=== PATIENT | male | born 1985 | race Caucasian/White ===

== ENCOUNTER 2018-07-18 11:32 | Emergency (ER) | payer OTHER, SELFPAY ==
[2018-07-18 11:51] VITALS: BP 156/105; PULSE 93; RESP 18; TEMP 37.4; O2SAT 95
--- NOTE | 2018-07-18 12:51 | DI.CT.S_ITS ---
PROCEDURE: CT UE LT WO CON INDICATIONS: trauma TECHNIQUE: Noncontrast 3 mm axial sections acquired of the left forearm, with coronal and sagittal reformats. COMPARISON: [facility] Outside Film, RG, FOREARM 2VW (LT), 07/17/2018, 21:41. FINDINGS: Image quality: Excellent. Bones: Examination of the left forearm shows an acute comminuted fracture involving the radial head with fracture line extending into its articulation with capitellum. Slightly laterally displaced radial head fragment is also seen. Acute comminuted fracture is also seen involving proximal ulnar shaft with dorsal angulation and displacement at fracture site.. Fracture line is seen extending to involve base of coronoid process with slight anterior displacement at fracture site. There is also an acute comminuted fracture involving distal radial shaft with fracture line extending to the radiocarpal joint space and anteriorly displaced fractured fragments. No definite distal humeral shaft fracture is seen. No mid-to distal ulnar shaft fracture. No gross carpal bone fracture is identified. Soft tissues: Significant soft tissue swelling around elbow joint fracture site is seen. Moderate elbow joint effusion is seen. Soft tissue swelling around distal radial shaft fracture site is also noted. IMPRESSION: 1. Acute comminuted and displaced intra-articular fracture involving proximal radial head. 2. Acute comminuted and displaced intra-articular fracture involving distal radius. 3. Acute comminuted and angulated fracture involving proximal ulnar shaft with fracture line likely extending to involve base of coronoid process. Dictated by: Donis Trejo M.D. on 07/18/2018 at 13:30 Approved by: Donis Trejo M.D. on 07/18/2018 at 13:44
--- NOTE | 2018-07-18 13:21 | ED.UPPEXIN ---
HPI - Extremity Injury (Upper) General Chief Complaint: Trauma Stated Complaint: FELL OFF LADDER, FINGERS TINGLING Time Seen by Provider: 07/18/18 12:06 Source: patient and family Mode of arrival: ambulatory Limitations: no limitations History of Present Illness HPI narrative: This is a 33-year-old male comes to the emergency department with complaint of fall yesterday. He fell off a ladder he states he is about 6 ft up, he thinks he just stepped off on fell onto the floor. He denies any head injury, he denies any neck or back pain. He states he was seen at [facility] and was diagnosed with fractures of the proximal and distal forearm. Patient had increasing pain overnight. He contacted the orthopedic office here in town images were reviewed and he was asked to come to the ER for a CT. Patient was having some tingling in the fingers. He states that the pain started to improve after the splint was unwrapped he noticed that he had more swelling than he did yesterday in the hand. Related Data Previous Rx's Medication Instructions Recorded hydroxyzine pamoate [Vistaril] 25 mg PO QID PRN #20 cap 07/18/18 oxycodone 5 mg PO Q4-6H PRN #25 tab 07/18/18 Allergies Allergy/AdvReac Type Severity Reaction Status Date / Time codeine [CODEINE] Allergy Unknown Verified 07/18/18 13:39 Review of Systems ENT Ears, Nose, Mouth, and Throat: Denies neck pain Musculoskeletal Reports system reviewed and no additional complaints, except as docu, Denies back pain, Denies neck pain and Reports tingling (left hand, pins and needles) Neurologic Reports tingling (left hand, pins and needles) [facility] Social History Smoking Status: Current every day smoker Exam Narrative Exam Narrative: GEN: Patient appears in mild distress. HEAD: No evidence of trauma, no raccoon/Doyle sign. NECK: Nontender, painless range of motion, trachea midline Negative Nexus criteria, there is no mid line tenderness, distracting injury, altered mental status, neuro deficit, recent EtOH. EYES: PERRLA, EOMI ENT: External inspection normal, trachea is midline, TM's are normal no hemotypanum, Nares are clear, no septal hematoma, no dental or oral injury, airway is normal and with normal occlusion, No bony tenderness RESP: Chest is nontender and has symmetric movement, no ecchymosis, breath sounds are normal no crackles, wheezes or rales CVS: Heart sounds are normal, no murmur noted, No JVD. ABG/GI: Nontender, soft, normal bowel sounds, no distention, no organomegaly, pelvic rock is [negative/positive] NEURO: Oriented AOx3, neuro is grossly intact, sensation and motor is normal all 4 extremities moving, cranial nerves II through XII are intact, GCS is 15 PSYCH: Normal mood and affect SKIN: Intact, warm and dry, no crepitus and without decubitus EXT: Patient has his left lower extremity splint with Yuri bandage removed, patient has tenderness of the arm itself distally and proximally over the radius and ulna he has a 2+ radial pulse on the left, he has cap refill less than 2 sec in all 5 fingers with full movement in all 5 fingers. Patient has sensation to touch, hips are nontender, no pedal edema, normal color and temperature, normal range of motion of extremities with normal tendon exam, 2+ pulses in all four extremities Initial Vital Signs Initial Vital Signs: Vital Signs Temperature 99.3 F 07/18/18 11:51 Pulse Rate 93 H 07/18/18 11:51 Respiratory Rate 18 07/18/18 11:51 Blood Pressure 156/105 H 07/18/18 11:51 Pulse Oximetry 95 07/18/18 11:51 Course Orders Ordered: ED Orders 07/18/18 12:51 CT UE LT wo con Stat Discontinued Medications Oxycodone/Acetaminophen (Percocet 5/325) 2 tab PO NOW ONE Stop: 07/18/18 13:24 Last Admin: 07/18/18 13:54 Dose: Oxycodone/Acetaminophen (Percocet 5/325) 1 tab PO NOW ONE Stop: 07/18/18 13:45 Last Admin: 07/18/18 14:19 Dose: Oxycodone/Acetaminophen (Percocet 5/325) 2 tab PO NOW ONE Stop: 07/18/18 14:19 Last Admin: 07/18/18 14:19 Dose: 2 tab Oxycodone/Acetaminophen (Percocet 5/325) 1 tab PO NOW ONE Stop: 07/18/18 14:21 Last Admin: 07/18/18 14:21 Dose: Vital Signs - 8 hr 07/18/18 11:51 07/18/18 14:48 Temperature 99.3 F Pulse Rate 93 H 88 Respiratory Rate 18 20 Blood Pressure 156/105 H 140/99 H Pulse Oximetry 95 100 MDM - Extremity Injury (Upper) Imaging Data CT UE: Radiologist's impression: [address] [address] [address] Scan Report Signed Patient: Sherwin Erickson PMR#: [id number] : 1985Acct:[id number] Age/Sex: 33 / MDate of Service: 07/18/18 Loc: ED Accession Number: [id number] Procedure: CT UE LT wo con Ordering Provider: Jade Don D.O. PROCEDURE: CT UE LT WO CON INDICATIONS: trauma TECHNIQUE: Noncontrast 3 mm axial sections acquired of the left forearm, with coronal and sagittal reformats. COMPARISON: [facility] Outside Film, RG, FOREARM 2VW (LT), 07/17/2018, 21:41. FINDINGS: Image quality: Excellent. Bones: Examination of the left forearm shows an acute comminuted fracture involving the radial head with fracture line extending into its articulation with capitellum. Slightly laterally displaced radial head fragment is also seen. Acute comminuted fracture is also seen involving proximal ulnar shaft with dorsal angulation and displacement at fracture site.. Fracture line is seen extending to involve base of coronoid process with slight anterior displacement at fracture site. There is also an acute comminuted fracture involving distal radial shaft with fracture line extending to the radiocarpal joint space and anteriorly displaced fractured fragments. No definite distal humeral shaft fracture is seen. No mid-to distal ulnar shaft fracture. No gross carpal bone fracture is identified. Soft tissues: Significant soft tissue swelling around elbow joint fracture site is seen. Moderate elbow joint effusion is seen. Soft tissue swelling around distal radial shaft fracture site is also noted. IMPRESSION: 1. Acute comminuted and displaced intra-articular fracture involving proximal radial head. 2. Acute comminuted and displaced intra-articular fracture involving distal radius. 3. Acute comminuted and angulated fracture involving proximal ulnar shaft with fracture line likely extending to involve base of coronoid process. Dictated by: Donis Trejo M.D. on 07/18/2018 at 13:30 Approved by: Donis Trejo M.D. on 07/18/2018 at 13:44 [facility] Narrative Medical decision making narrative: Spoke with Dr. salinas, Dr. Alas had reviewed his x-ray films. Dr. salinas reviewed his CT films here in the emergency department. Plan to keep patient and have surgery this following week. Patient can return home. They do not feel he needs to go to [facility] for his fractures and that they can be surgically fixated at [place]. Patient was given a prescription for pain medicine, he is also complaining of a little bit of burning sensation Vistaril as well. Pain did improve after loosening of his splint was rewrapped here in the department. We did discussed red flag symptoms to watch out for and reasons to return emergently. Discharge Plan Departure Patient Disposition: Home Clinical Impression: Forearm fractures, both bones, closed Discharge Date/Time: 07/18/18 14:49 Interventions: ED Discharge Assessment Last Done: 07/18/18 14:48 Instructions: Forearm Fracture Activity Restrictions/Additional Instructions: Follow-up with Dr. Alas next week for surgical repair of her fractures. Call tomorrow afternoon if you have not heard from the office for an appointment time. Take pain medication as prescribed, you can week 1-2 tablets every 6 hr as needed for pain. You may take up to a 1000 mg every 8 hr as needed for pain. You may also take Vistaril 1 tablet every 6-8 hours as needed for itching or burning sensation. Return to the emergency department for new weakness, loss of sensation, inability to move or feel your fingers, rapidly worsening pain, color changes such as pallor or cyanosis. Splint Care: Keep splint clean and dry. Elevated affected body part to decrease swelling. OK to use ice pack on the affected body part. Use for 15-20 minutes each time, for 5-6x per day. If you develop worsening pain, numbness, tingling, discoloration of the affected body part, loosen the splint by loosening the YURI wrap, and either see your doctor for an urgent re-assessment, or return to the Emergency Department. Return to the Emergency Department for any new or worsening symptoms. Prescriptions: New oxycodone 5 mg tablet 5 mg PO Q4-6H PRN (Reason: pain) Qty: 25 RF: 0 hydroxyzine pamoate [Vistaril] 25 mg capsule 25 mg PO QID PRN (Reason: itching) Qty: 20 RF: 0 Referrals: Marquez Alas MD [Physician] -
--- NOTE | 2018-07-18 14:00 | ED_ITS ---
HPI - Extremity Injury (Upper) General Chief Complaint: Trauma Stated Complaint: FELL OFF LADDER, FINGERS TINGLING Time Seen by Provider: 07/18/18 12:06 Source: patient and family Mode of arrival: ambulatory Limitations: no limitations History of Present Illness HPI narrative: This is a 33-year-old male comes to the emergency department with complaint of fall yesterday. He fell off a ladder he states he is about 6 ft up, he thinks he just stepped off on fell onto the floor. He denies any head injury, he denies any neck or back pain. He states he was seen at [facility] and was diagnosed with fractures of the proximal and distal forearm. Patient had increasing pain overnight. He contacted the orthopedic office here in town images were reviewed and he was asked to come to the ER for a CT. Patient was having some tingling in the fingers. He states that the pain started to improve after the splint was unwrapped he noticed that he had more swelling than he did yesterday in the hand. Related Data Previous Rx's Medication Instructions Recorded hydroxyzine pamoate [Vistaril] 25 mg PO QID PRN #20 cap 07/18/18 oxycodone 5 mg PO Q4-6H PRN #25 tab 07/18/18 Allergies Allergy/AdvReac Type Severity Reaction Status Date / Time codeine [CODEINE] Allergy Unknown Verified 07/18/18 13:39 Review of Systems ENT Ears, Nose, Mouth, and Throat: Denies neck pain Musculoskeletal Reports system reviewed and no additional complaints, except as docu, Denies back pain, Denies neck pain and Reports tingling (left hand, pins and needles) Neurologic Reports tingling (left hand, pins and needles) [facility] Social History Smoking Status: Current every day smoker Exam Narrative Exam Narrative: GEN: Patient appears in mild distress. HEAD: No evidence of trauma, no raccoon/Doyle sign. NECK: Nontender, painless range of motion, trachea midline Negative Nexus criteria, there is no mid line tenderness, distracting injury, altered mental status, neuro deficit, recent EtOH. EYES: PERRLA, EOMI ENT: External inspection normal, trachea is midline, TM's are normal no hemotypanum, Nares are clear, no septal hematoma, no dental or oral injury, airway is normal and with normal occlusion, No bony tenderness RESP: Chest is nontender and has symmetric movement, no ecchymosis, breath sounds are normal no crackles, wheezes or rales CVS: Heart sounds are normal, no murmur noted, No JVD. ABG/GI: Nontender, soft, normal bowel sounds, no distention, no organomegaly, pelvic rock is [negative/positive] NEURO: Oriented AOx3, neuro is grossly intact, sensation and motor is normal all 4 extremities moving, cranial nerves II through XII are intact, GCS is 15 PSYCH: Normal mood and affect SKIN: Intact, warm and dry, no crepitus and without decubitus EXT: Patient has his left lower extremity splint with Yuri bandage removed, patient has tenderness of the arm itself distally and proximally over the radius and ulna he has a 2+ radial pulse on the left, he has cap refill less than 2 sec in all 5 fingers with full movement in all 5 fingers. Patient has sensation to touch, hips are nontender, no pedal edema, normal color and temperature, normal range of motion of extremities with normal tendon exam, 2+ pulses in all four extremities Initial Vital Signs Initial Vital Signs: Vital Signs Temperature 99.3 F 07/18/18 11:51 Pulse Rate 93 H 07/18/18 11:51 Respiratory Rate 18 07/18/18 11:51 Blood Pressure 156/105 H 07/18/18 11:51 Pulse Oximetry 95 07/18/18 11:51 Course Orders Ordered: ED Orders 07/18/18 12:51 CT UE LT wo con Stat Discontinued Medications Oxycodone/Acetaminophen (Percocet 5/325) 2 tab PO NOW ONE Stop: 07/18/18 13:24 Last Admin: 07/18/18 13:54 Dose: Oxycodone/Acetaminophen (Percocet 5/325) 1 tab PO NOW ONE Stop: 07/18/18 13:45 Last Admin: 07/18/18 14:19 Dose: Oxycodone/Acetaminophen (Percocet 5/325) 2 tab PO NOW ONE Stop: 07/18/18 14:19 Last Admin: 07/18/18 14:19 Dose: 2 tab Oxycodone/Acetaminophen (Percocet 5/325) 1 tab PO NOW ONE Stop: 07/18/18 14:21 Last Admin: 07/18/18 14:21 Dose: Vital Signs - 8 hr 07/18/18 11:51 07/18/18 14:48 Temperature 99.3 F Pulse Rate 93 H 88 Respiratory Rate 18 20 Blood Pressure 156/105 H 140/99 H Pulse Oximetry 95 100 MDM - Extremity Injury (Upper) Imaging Data CT UE: Radiologist's impression: [address] [address] [address] Scan Report Signed Patient: hSerwin Erickson PMR#: [id number] : 1985Acct:[id number] Age/Sex: 33 / MDate of Service: 07/18/18 Loc: ED Accession Number: [id number] Procedure: CT UE LT wo con Ordering Provider: Jade Don D.O. PROCEDURE: CT UE LT WO CON INDICATIONS: trauma TECHNIQUE: Noncontrast 3 mm axial sections acquired of the left forearm, with coronal and sagittal reformats. COMPARISON: [facility] Outside Film, RG, FOREARM 2VW (LT), 07/17/2018, 21:41. FINDINGS: Image quality: Excellent. Bones: Examination of the left forearm shows an acute comminuted fracture involving the radial head with fracture line extending into its articulation with capitellum. Slightly laterally displaced radial head fragment is also seen. Acute comminuted fracture is also seen involving proximal ulnar shaft with dorsal angulation and displacement at fracture site.. Fracture line is seen extending to involve base of coronoid process with slight anterior displacement at fracture site. There is also an acute comminuted fracture involving distal radial shaft with fracture line extending to the radiocarpal joint space and anteriorly displaced fractured fragments. No definite distal humeral shaft fracture is seen. No mid-to distal ulnar shaft fracture. No gross carpal bone fracture is identified. Soft tissues: Significant soft tissue swelling around elbow joint fracture site is seen. Moderate elbow joint effusion is seen. Soft tissue swelling around distal radial shaft fracture site is also noted. IMPRESSION: 1. Acute comminuted and displaced intra-articular fracture involving proximal radial head. 2. Acute comminuted and displaced intra-articular fracture involving distal radius. 3. Acute comminuted and angulated fracture involving proximal ulnar shaft with fracture line likely extending to involve base of coronoid process. Dictated by: Donis Trejo M.D. on 07/18/2018 at 13:30 Approved by: Donis Trejo M.D. on 07/18/2018 at 13:44 [facility] Narrative Medical decision making narrative: Spoke with Dr. salinas, Dr. Alas had reviewed his x-ray films. Dr. salinas reviewed his CT films here in the emergency department. Plan to keep patient and have surgery this following week. Patient can return home. They do not feel he needs to go to [facility] for his fractures and that they can be surgically fixated at [place]. Patient was given a prescription for pain medicine, he is also complaining of a little bit of burning sensation Vistaril as well. Pain did improve after loosening of his splint was rewrapped here in the department. We did discussed red flag symptoms to watch out for and reasons to return emergently. Discharge Plan Departure Patient Disposition: Home Clinical Impression: Forearm fractures, both bones, closed Discharge Date/Time: 07/18/18 14:49 Interventions: ED Discharge Assessment Last Done: 07/18/18 14:48 Instructions: Forearm Fracture Activity Restrictions/Additional Instructions: Follow-up with Dr. Alas next week for surgical repair of her fractures. Call tomorrow afternoon if you have not heard from the office for an appointment time. Take pain medication as prescribed, you can week 1-2 tablets every 6 hr as needed for pain. You may take up to a 1000 mg every 8 hr as needed for pain. You may also take Vistaril 1 tablet every 6-8 hours as needed for itching or burning sensation. Return to the emergency department for new weakness, loss of sensation, inability to move or feel your fingers, rapidly worsening pain, color changes such as pallor or cyanosis. Splint Care: Keep splint clean and dry. Elevated affected body part to decrease swelling. OK to use ice pack on the affected body part. Use for 15-20 minutes each time, for 5-6x per day. If you develop worsening pain, numbness, tingling, discoloration of the affected body part, loosen the splint by loosening the YURI wrap, and either see your doctor for an urgent re-assessment, or return to the Emergency Department. Return to the Emergency Department for any new or worsening symptoms. Prescriptions: New oxycodone 5 mg tablet 5 mg PO Q4-6H PRN (Reason: pain) Qty: 25 RF: 0 hydroxyzine pamoate [Vistaril] 25 mg capsule 25 mg PO QID PRN (Reason: itching) Qty: 20 RF: 0 Referrals: Marquez Alas MD [Physician] -
[2018-07-18] MEDS: OXYCODONE/ACETAMINOPHEN 5/325 TABLET 2 TAB PO (14:19)
[2018-07-18 14:48] VITALS: BP 140/99; PULSE 88; RESP 20; O2SAT 100
== END 2018-07-18 14:49 | disposition home or self-care (01) ==
PROVIDERS: Emergency Provider Emergency Medicine
DX: S52.122A Displaced fracture of head of left radius, initial encounter for closed fracture (principal); S52.252A Displaced comminuted fracture of shaft of ulna, left arm, initial encounter for closed fracture; W11.XXXA Fall on and from ladder, initial encounter
CPT/HCPCS: 73200; 99282; 99284